=== PATIENT | male | born 1970 ===

== ENCOUNTER 2025-01-02 09:25 | Outpatient (REF) | payer OTHER, SELFPAY ==
--- OUTSIDE RECORDS SUMMARY | 2025-01-02 10:38 | XMS_ITS | Clinical Summary ---
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 Name Role Phone Unavailable Primary Care Provider Unavailabl e Social History Tobacco Use Types Packs/Day Years Used Date Smoking Tobacco: Never Assessed Sex and Gender Information Value Date Recorded Sex Assigned at Not on file Legal Sex Male 9:04 PM EST Gender Identity Not on file Sexual Orientation Not on file Plan of Treatment Health Maintenance Due Date Last Done Comments COVID-19 Vaccine (#1) 01/30/1973 DTaP,Tdap,and Td Vaccines (1 - Tdap) 01/30/1987 Hepatitis B Vaccines (1 of 3 - 19+ 3-dose series) 01/30/1987 Pneumococcal Vaccine: 50+ Ye ars (1 of 2 - PCV) 01/30/1987 Pneumococcal Vaccine: Pediat rics (0 to 5 Years) and At-Risk Patients (6 to 64 Years) (1 of 2 - PCV) 01/30/1987 Zoster Vaccines (1 of 2) 01/30/1987 Cholesterol Screening (Lipid Panel) 10/29/2023 Colorectal Cancer Screening: Colonoscopy 10/29/2023 Depression Screening 10/29/2023 HIV Screening 10/29/2023 Hepatitis C Screening 10/29/2023 Social Influencers of Health Screening 10/29/2023 Influenza Vaccine (#1) 2024 HIB Vaccines Aged Out No longer eligi ble based on patient's age to complete this topic HPV Vaccines Aged Out No longer eligi ble based on patient's age to complete this topic Hepatitis A Vaccines Aged Out No long er eligible based on patient's age to complete this topic IPV Vaccines Aged Out No longer eligi ble based on patient's age to complete this topic MMR Vaccines Aged Out No longer eligi ble based on patient's age to complete this topic Meningococcal ACWY Vaccine Aged Out N o longer eligible based on patient's age to complete this topic Meningococcal B Vacine Aged Out No lo nger eligible based on patient's age to complete this topic RSV Immunization Patients Un luciano 20 months Aged Out No longer eligible b ased on patient's age to complete this topic Varicella Vaccines Aged Out No longer eligible based on patient's age to complete this topic Insurance [place]
== END 2025-01-02 09:26 | disposition home or self-care (01) ==
LOC: HO.SH 09:25
PROVIDERS: Visit Provider Physician Assistant Medical
DX: Z01.118 Encounter for examination of ears and hearing with other abnormal findings (principal); H90.42 Sensorineural hearing loss, unilateral, left ear, with unrestricted hearing on the contralateral side
CPT/HCPCS: 92557; 92567